=== PATIENT | female | born 1980 | race Two or more races ===

== ENCOUNTER 2018-12-17 00:03 | Emergency (ER) | payer SELFPAY ==
[~2018-12-17] VITALS: Ht 170.2 cm; Wt 99.8 kg
[~2018-12-17 00:03] MED LIST: [UNRECOGNIZED DRUG - OTHER] IN
[2018-12-17 00:14] VITALS: BP 133/92
[2018-12-17] MEDS ORDERED: ALBUTEROL SULF 2.5 MG/0.5ML(0.5%) NEB SOLN HHN STA (00:17)
[2018-12-17] MEDS ORDERED: ALBUTEROL SULF 2.5 MG/0.5ML(0.5%) NEB SOLN ONE (00:21)
[2018-12-17] MEDS ORDERED: IPRATROPIUM BROM 0.5 MG/2.5ML INH SOL ONE (00:21)
[2018-12-17] MEDS ORDERED: methylPREDNISolone SOD SUCC 125 MG/2 ML VL IM ONE (00:30)
[2018-12-17] MEDS ORDERED: IPRATROPIUM BROM 0.5 MG/2.5ML INH SOL NEB ONE (00:30)
== END 2018-12-17 04:14 | disposition left against medical advice (07) ==
LOC: ER 00:06
DX: J45.909 Unspecified asthma, uncomplicated (principal); R06.02 Shortness of breath; Z53.21 Procedure and treatment not carried out due to patient leaving prior to being seen by health care provider
CPT/HCPCS: 71046; 94640; 99281; J7611; J7644

== ENCOUNTER 2019-06-04 11:32 | Emergency (ER) | payer BC ==
[~2019-06-04] VITALS: Ht 170.2 cm; Wt 99.8 kg
[2019-06-04 13:59] LABS: Basophils # (auto) 0 uL; Basophils % (auto) 0.3 % (0.0-2.0); Eosinophils # (auto) 0.7 uL; Eosinophils % (auto) 4.8 % (0.0-7.0); Hematocrit 41.1 % (36.0-46.0); Hemoglobin 13.9 g/dL (12.2-16.2); Lymphocytes # (auto) 0.8 uL; Lymphocytes % (auto) 5.8 % (10.0-50.0); Mean Corpuscular Hemoglobin 30.4 pg (28.0-32.0); Mean Corpuscular Hgb Conc. 33.8 g/dL (32.0-36.0); Mean Corpuscular Volume 90.1 fL (80.0-100.0); Monocytes # (auto) 0.6 uL; Monocytes % (auto) 4.5 % (0.0-12.0); Neutrophils # (auto) 11.5 uL; Neutrophils % (auto) 84.6 % (37.0-80.0); Platelet Count (auto) 334 10^3/uL (140-450); Red Blood Cells 4.56 10^6/uL (4.0-5.20); Red Cell Distribution Width 13.2 % (11.8-14.3); White Blood Cell 13.6 10^3/uL (4.4-10.8)
[2019-06-04] MEDS ORDERED: KETOROLAC TROMETH 30 MG/ML 1ML VIAL IV ONE (14:00)
[2019-06-04] MEDS ORDERED: SODIUM CHLORIDE 0.9% 1,000 ML IV ONE (14:00)
[2019-06-04 14:22] LABS: Albumin 3.8 g/dL (3.4-5.0); BUN/Creatinine Ratio 22.4; Calcium 8.6 mg/dL (8.5-10.1); Potassium 4.2 mmol/L (3.5-5.1)
[2019-06-04 14:25] LABS: Bilirubin, Total 0.6 mg/dL (0.2-1.0); Total Protein 7.9 g/dL (6.4-8.2)
[2019-06-04 15:51] VITALS: BP 112/71
[2019-06-04 16:01] LABS: Urine WBC None Seen /hpf (0 - 5)
[2019-06-04 16:44] LABS: Urine Bacteria NONE SEEN /hpf (None Seen); Urine Blood 1+ /uL (Negative); Urine Specific Gravity 1.003 (1.001-1.035)
== END 2019-06-04 18:31 | disposition home or self-care (01) ==
LOC: ER 11:39
DX: R10.32 Left lower quadrant pain (principal); I10 Essential (primary) hypertension; I25.2 Old myocardial infarction; Z90.710 Acquired absence of both cervix and uterus; Z98.51 Tubal ligation status
CPT/HCPCS: 36415; 76856; 80053; 81001; 81025; 83690; 85025; 96374; 99284; J1885; J7030

== ENCOUNTER 2022-08-25 15:02 | Emergency (ER) | payer BC ==
[~2022-08-25] VITALS: Ht 170.2 cm; Wt 98.2 kg
[2022-08-25] MEDS ORDERED: ONDANSETRON HCL 4 MG/2 ML VIAL IV ONE (15:15)
[2022-08-25] MEDS ORDERED: SODIUM CHLORIDE 0.9% 500 ML IVB ONE (15:15)
[2022-08-25 15:46] LABS: Hematocrit 42.6 % (36.0-46.0); Hemoglobin 14.6 g/dL (12.2-16.2); Mean Corpuscular Hemoglobin 30.3 pg (28.0-32.0); Mean Corpuscular Hgb Conc. 34.3 g/dL (32.0-36.0); Mean Corpuscular Volume 88.4 fL (80.0-100.0); Red Blood Cells 4.82 10^6/uL (4.0-5.20); Red Cell Distribution Width 13.4 % (11.8-14.3); White Blood Cell 13.2 10^3/uL (4.4-10.8)
[2022-08-25 15:48] LABS: Basophils % (manual) 0 (0.0-2.0); Blast Cells 0; Eosinophils % (manual) 0 (0-7); Metamyelocytes % 0; Myelocytes % 0; Promyelocytes % 0; Reactive Lymphocytes 0
[2022-08-25 16:05] LABS: Albumin 3.5 g/dL (3.4-5.0); BUN/Creatinine Ratio 15.5; Calcium 8.6 mg/dL (8.5-10.1)
[2022-08-25 16:08] LABS: Bilirubin, Total 0.5 mg/dL (0.2-1.0); Total Protein 7.4 g/dL (6.4-8.2)
[2022-08-25 16:09] LABS: Band Neutrophils % (manual) 25; Lymphocytes % (manual) 3 (10.0-50.0); Monocytes % (manual) 2 (0-12)
[2022-08-25 16:24] LABS: Potassium 2.9 mmol/L (3.5-5.1)
[2022-08-25 18:35] LABS: Urine Bacteria NONE SEEN /hpf (None Seen); Urine Blood Negative /uL (Negative); Urine Mucus FEW (None Seen); Urine Specific Gravity 1.025 (1.001-1.035); Urine WBC 6 /hpf (0 - 5)
[2022-08-25] MEDS ORDERED: POTASSIUM CHL 20MEQ/100ML 100 ML IV ONE (19:00)
[2022-08-25] MEDS ORDERED: POTASSIUM EFFERVESENT TAB 25 MEQ PO ONE (20:00)
[2022-08-25] MEDS ORDERED: ACETAMINOPHEN 325 MG TAB PO ONE (20:30)
[2022-08-25] MEDS ORDERED: POTA-220 PO (21:36)
[2022-08-26 02:30] VITALS: BP 140/67
== END 2022-08-25 22:13 | disposition home or self-care (01) ==
LOC: ER 15:02 → EDBD 15:02 → ER 22:13
DX: E87.6 Hypokalemia (principal); R55 Syncope and collapse; E86.0 Dehydration; F41.0 Panic disorder [episodic paroxysmal anxiety]; I10 Essential (primary) hypertension; I25.2 Old myocardial infarction; J45.909 Unspecified asthma, uncomplicated; Z90.49 Acquired absence of other specified parts of digestive tract; Z79.899 Other long term (current) drug therapy
CPT/HCPCS: 36415; 74176; 80053; 81001; 81025; 83690; 84484; 85007; 85027; 96365; 96366; 96375; 99285; J2405; J3480; J7040

== ENCOUNTER 2024-12-28 04:49 | Emergency (ER) | payer BC, OTHER ==
[~2024-12-28] VITALS: Ht 170.2 cm; Wt 106.6 kg
[~2024-12-28 04:49] MED LIST changes: +POTA-220 PO
[2024-12-28 05:18] VITALS: TEMP 97.8
[2024-12-28 06:24] LABS: Urine Bacteria None Seen /hpf (None Seen)
--- NOTE | 2024-12-28 06:31 | ED.PDOC ---
History of Present Illness HPI Comments 44F presents to the ER w/ prior MHx of Asthma, MT; SHx of BTL and Cholecystectomy, and the c/c of /D. Pt reports on originally came to the ER for her daughter but was having symptoms of a /D for 2 weeks that are on and off. Pt states that once she walked into the ER she has been having constant /D, w/ tingling in the head. Pt notes that she has had these similar symptoms, when she had low potassium levels. Denies chills, fever, N/V, SOB, CP . No other associated symptoms, modifiers, recent injuries or sick contacts present at this time. Chief Complaint: Diarrhea Time Seen by MD: 06:20 Primary Care Provider: HALI Douglass Notes: Nurses Notes, Medications, Allergies Allergies: Coded Allergies: NO KNOWN ALLERGIES (Unverified , 05/29/10) Home Meds Active Scripts Diphenoxylate W/ Atropine (Lomotil) 2.5 Mg Tab, 1 TAB PO QID, #20 TAB Prov:TANNER HOPKINS MD 12/28/24 Potassium Chloride (Klor-Con M20) 20 Meq Tab, 20 MEQ PO DAILY for 3 Days, #3 TAB Prov:MAXX DOUGLAS MD 08/25/22 Reported Medications [Proaire] No Conflict Check, IN PRN 05/30/10 Information Source: Patient Mode of Arrival: Ambulatory Severity: Moderate Timing: Weeks Duration: Since onset Prehospital treatment: None Past Medical History PAST MEDICAL HISTORY: Asthma, MT Surgical History: BTL, Cholecystectomy VENEER DRIER History: Denies all VENEER DRIER Hx Family History Family History: Reviewed,noncontributory to illness, Family hx of DM (Type II), Family hx of heart yeny Social History Smoker: Non-Smoker Alcohol: Denies ETOH Use Drugs: Denies Drug Use Lives In: Home Constitutional: denies: chills, diaphoresis, fatigue, fever, malaise, sweats, weakness, others EENTM: denies: blurred vision, double vision, ear bleeding, ear discharge, ear drainage, ear pain, ear ringing, eye pain, eye redness, hearing loss, mouth pain, mouth swelling, nasal discharge, nose bleeding, nose congestion, nose pain, photophobia, tearing, throat pain, throat swelling, voice changes, others Respiratory: denies: cough, hemoptysis, orthopnea, SOB at rest, shortness of breath, SOB with excertion, stridor, wheezing, others Cardiovascular: denies: chest pain, dizzy spells, diaphoresis, Dyspnea on exertion, edema, irregular heart beat, left arm pain, lightheadedness, palpitations, PND, syncope, others Gastrointestinal: reports: diarrhea; denies: abdomen distended, abdominal pain, blood streaked bowels, constipated, dysphagia, difficulty swallowing, hematemesis, melena, nausea, poor appetite, poor fluid intake, rectal bleeding, rectal pain, vomiting, others Genitourinary: denies: abnormal vagina bleeding, burning, dyspareunia, dysuria, flank pain, frequency, hematuria, incontinence, pain, , vagina discharge, urgency, others Neurological: denies: dizziness, fainting, headache, left sided numbness, left sided weakness, numbness, paresthesia, pre-existing deficit, right sided numbness, right sided weakness, seizure, speech problems, tingling, tremors, weakness, others Musculoskeletal: denies: back pain, gout, joint pain, joint swelling, muscle pain, muscle stiffness, neck pain, others Integumetry: denies: bruises, change in color, change in hair/nails, dryness, laceration, lesions, lumps, rash, wounds, others Allergic/Immunocompromised: denies: Difficulty Healing, Frequent Infections, Hives, Itching, others Hematologic/Lymphatic: denies: anemia, blood clots, easy bleeding, easy b ruising, swollen glands, others Endocrine: denies: excessive hunger, excessive sweating, excessive thirst, excessive urination, flushing, intolerance to cold, intolerance to heat, unexplained weight gain, unexplained weight loss, others Psychiatric: denies: anxiety, bipolar disorder, depression, hopeless, panic disorder, schizophrenia, sleepless, suicidal, others All Other Systems: Reviewed and Negative Physical Exam General Appearance: No Apparent Distress HEENT: Normal ENT Inspection, Pharynx Normal, TMs Normal Neck: Full Range of Motion, Non-Tender, Normal, Normal Inspection Respiratory: Chest Non-Tender, Lungs Clear, No Accessory Muscle Use, No Respiratory Distress, Normal Breath Sounds Cardiovascular: No Edema, No JVD, No Murmur, No Gallop, Normal Peripheral Pulses, Regular Rate/Rhythm Breast Exam: Deferred Gastrointestinal: No Organomegaly, Non Tender, No Pulsatile Mass, Normal Bowel Sounds, Soft Genitalia: Deferred Pelvic: Deferred Rectal: Deferred Extremities: No calf tenderness, Normal capillary refill, Normal inspection, Normal range of motion, Non-tender, No pedal edema Musculoskeletal : Apperance: Normal Neurologic: Alert, boardinghouse keeper II-XII nml as Tested, No Motor Deficits, Normal Affect, Normal Mood, No Sensory Deficits Cerebellar Function: Normal Reflexes: Normal Skin: Dry, Normal Color, Warm Lymphatic: No Adenopathy Was a procedure done? Was a procedure done?: No Differential Dx Considerations may include: Gastroenteritis, dehydration, diarrhea X-Ray, Labs, Meds, VS Vital Signs Date Time Temp Pulse Resp B/P (MAP) Pulse Ox O2 Delivery O2 Flow Rate FiO2 12/28/24 05:18 97.8 87 88 101/63 (76) 16 97.8 Lab Test 12/28/24 06:27 12/28/24 06:23 Range/Units White Blood Count 19.9 H 4.4-10.8 10^3/uL Red Blood Count 4.67 4.0-5.20 10^6/uL Hemoglobin 14.3 12.2-16.2 g/dL Hematocrit 42.2 36.0-46.0 % Mean Corpuscular Volume 90.3 80.0-100.0 fL Mean Corpuscular Hemoglobin 30.5 28.0-32.0 pg Mean Corpuscular Hemoglobin Concent 33.8 32.0-36.0 g/dL Red Cell Distribution Width 13.6 11.8-14.3 % Platelet Count 300 140-450 10^3/uL Mean Platelet Volume 7.5 6.9-10.8 fL Neutrophils (%) (Auto) 37.0-80.0 % Lymphocytes (%) (Auto) 10.0-50.0 % Monocytes (%) (Auto) 0.0-12.0 % Eosinophils (%) (Auto) 0.0-7.0 % Basophils (%) (Auto) 0.0-2.0 % Neutrophils # (Auto) 1.6-8.6 10 ^3/uL Lymphocytes # (Auto) 0.4-5.4 10 ^3/uL Monocytes # (Auto) 0-1.3 10 ^3/uL Differential Total Cells Counted Pending Neutrophils % (Manual) Pending Band Neutrophils % (Manual) Pending Lymphocytes % (Manual) Pending Monocytes % (Manual) Pending Eosinophils % (Manual) Pending Basophils % (Manual) Pending Metamyelocytes % (manual) Pending Myelocytes % (Manual) Pending Promyelocytes % (Manual) Pending Blast Cells % (Manual) Pending Reactive Lymphocytes Pending Platelet Estimate Pending Sodium Level 140 136-145 mmol/L Potassium Level 3.5 3.5-5.1 mmol/L Chloride Level 112 H 98-107 mmol/L Carbon Dioxide Level 19 L 20-31 mmol/L Anion Gap 9 5-15 Blood Urea Nitrogen 19 9-23 mg/dL Creatinine 0.83 0.550-1.02 mg/dL Glomerular Filtration Rate Calc 89 >90 mL/min BUN/Creatinine Ratio 22.9 H 10.0-20.0 Serum Glucose 109 H 74-106 mg/dL Calcium Level 9.6 8.7-10.4 mg/dL Urine Color Yellow Yellow Urine Clarity Turbid H Clear Urine pH 5.5 5.0-9.0 Urine Specific Larue 1.027 1.001-1.035 Urine Protein Trace H Negative Urine Ketones Trace Negative Urine Blood 2+ H Negative /uL Urine Nitrite Negative Negative Urine Bilirubin Negative Negative Urine Urobilinogen Normal Negative mg/dL Urine Leukocyte Esterase Trace Negative /uL Urine RBC 8 0 - 4 /hpf Urine Microscopic WBC 6 H 0-5 /HPF Urine Squamous Epithelial Cells Few <5 /hpf Urine Bacteria None seen None Seen /hpf Urine Mucus Moderate None Seen Urine Glucose Normal Normal mg/dL The urine test is negative for infection The CBC shows a slightly elevated white blood cell count of 19.9 The rest of the chemistry panel is within normal limits At this time, the patient was being given a prescription of Lomotil She will return to the emergency department's the condition worsens. Time of 1ST Reevaluation: 06:50 Reevaluation 1ST: Unchanged Patient Education/Counseling: Diagnosis, Treatment, Prognosis, Need For Follow Up Family Education/Counseling: No Family Present Departure 1 Departure Time of Disposition: 07:26 Impression: Primary Impression: Diarrhea Qualified Codes: R19.7 - Diarrhea, unspecified Additional Impression: Viral syndrome Disposition: 01 HOME / SELF CARE / HOMELESS Condition: Fair e-Prescriptions Diphenoxylate W/ Atropine (Lomotil) 2.5 Mg Tab 1 TAB PO QID, #20 TAB Prov: TANNER HOPKINS MD 12/28/24 Discharged With: Self Critical Care Note Critical Care Time?: No Stability Stability form required: No Heart Score Heart Score: Heart Score Response (Comments) Value History N/A 0 EKG N/A 0 Age N/A 0 Risk Factors N/A 0 Troponin N/A 0 Total 0 I personally scribed for TANNER HOPKINS MD ([email or web address]) on 12/28/24 at 06:31. Electronically submitted by Pasquale Estrada ([email or web address]). TANNER HOPKINS MD December 28, 2024 06:31
[2024-12-28 06:46] LABS: Hematocrit 42.2 % (36.0-46.0); Hemoglobin 14.3 g/dL (12.2-16.2); Mean Corpuscular Hemoglobin 30.5 pg (28.0-32.0); Mean Corpuscular Hgb Conc. 33.8 g/dL (32.0-36.0); Mean Corpuscular Volume 90.3 fL (80.0-100.0); Platelet Count (auto) 300 10^3/uL (140-450); Red Blood Cells 4.67 10^6/uL (4.0-5.20); Red Cell Distribution Width 13.6 % (11.8-14.3); White Blood Cell 19.9 10^3/uL (4.4-10.8)
[2024-12-28 06:48] LABS: Band Neutrophils % (manual) 0; Basophils % (manual) 0 (0.0-2.0); Blast Cells 0; Metamyelocytes % 0; Myelocytes % 0; Promyelocytes % 0; Reactive Lymphocytes 0
[2024-12-28 06:51] LABS: Urine Blood 2+ /uL (Negative); Urine Clarity Turbid (Clear); Urine Color Yellow (Yellow); Urine Mucus MODERATE (None Seen); Urine Protein, UAD TRACE (Negative); Urine Specific Gravity 1.027 (1.001-1.035); Urine Squamous Epithelial Cell FEW /hpf (<5); Urine Urobilinogen Normal (Negative); Urine WBC 6 /HPF (0-5); Urine pH 5.5 (5.0-9.0)
[2024-12-28 06:55] LABS: Potassium 3.5 mmol/L (3.5-5.1); Sodium 140 mmol/L (136-145)
[2024-12-28 06:56] LABS: Anion Gap 9 (5-15); Calcium 9.6 mg/dL (8.7-10.4)
[2024-12-28 07:01] LABS: BUN/Creatinine Ratio 22.9 (10.0-20.0); Blood Urea Nitrogen 19 mg/dL (9-23)
[2024-12-28 07:03] LABS: Carbon Dioxide 19 mmol/L (20-31); Chloride 112 mmol/L (98-107); Glucose 109 mg/dL (74-106)
[2024-12-28] MEDS ORDERED: DIPH2.5T73 PO (07:23)
[2024-12-28 07:34] LABS: Eosinophils % (manual) 21 (0-7); Lymphocytes % (manual) 2 (10.0-50.0); Monocytes % (manual) 3 (0-12); Platelet Estimate Adequate
[2024-12-28 07:42] VITALS: BP 114/71
[2024-12-28 07:43] VITALS: PULSE 98; RESP 16; O2SAT 98
== END 2024-12-28 07:50 | disposition home or self-care (01) ==
LOC: ER 04:49
DX: R19.7 Diarrhea, unspecified (principal); B34.9 Viral infection, unspecified; J45.909 Unspecified asthma, uncomplicated; I25.2 Old myocardial infarction; Z90.49 Acquired absence of other specified parts of digestive tract; Z98.51 Tubal ligation status; Z79.899 Other long term (current) drug therapy
CPT/HCPCS: 36415; 80048; 81001; 85007; 85027